=== PATIENT | female | born 1990 | race Hispanic/Latino ===

== ENCOUNTER 2019-10-24 12:46 | Emergency (ER) | payer BC, OTHER ==
[~2019-10-24] VITALS: Ht 154.9 cm; Wt 77.1 kg
== END 2019-10-24 14:25 | disposition left against medical advice (07) ==
LOC: FSED 12:46
DX: O47.00 False labor before 37 completed weeks of gestation, unspecified trimester (principal); R10.30 Lower abdominal pain, unspecified
CPT/HCPCS: 81003